=== PATIENT | male | born 1995 | race Caucasian/White ===

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

== ENCOUNTER 2017-04-08 13:04 | Emergency (ER) | payer OTHER ==
[2017-04-08 13:18] VITALS: BP 110/71
== END 2017-04-08 16:27 | disposition home or self-care (01) ==
LOC: ED 13:04
DX: S01.511A Laceration without foreign body of lip, initial encounter (principal); X58.XXXA Exposure to other specified factors, initial encounter; Y93.89 Activity, other specified; Y99.8 Other external cause status; Y92.89 Other specified places as the place of occurrence of the external cause
CPT/HCPCS: J2001

== ENCOUNTER 2017-08-07 16:05 | Emergency (ER) | payer OTHER ==
[~2017-08-07] VITALS: Ht 182.9 cm; Wt 83.5 kg
[2017-08-07 16:08] VITALS: BP 142/74; Ht 182.9 cm; Wt 83.5 kg
== END 2017-08-07 17:45 | disposition home or self-care (01) ==
LOC: ED 16:05
DX: J18.9 Pneumonia, unspecified organism (principal)
CPT/HCPCS: 87804; J0696; J7613

== ENCOUNTER 2017-09-15 17:26 | Emergency (ER) | payer OTHER ==
[~2017-09-15] VITALS: Ht 182.9 cm; Wt 85.3 kg
[2017-09-15 17:50] VITALS: Ht 182.9 cm; Wt 85.3 kg
[2017-09-15 20:34] VITALS: BP 117/68
== END 2017-09-15 20:34 | disposition home or self-care (01) ==
LOC: ED 17:26
DX: S30.817A Abrasion of anus, initial encounter (principal); X58.XXXA Exposure to other specified factors, initial encounter; Y93.89 Activity, other specified; Y92.89 Other specified places as the place of occurrence of the external cause; Y99.8 Other external cause status

== ENCOUNTER 2018-04-23 16:05 | Emergency (ER) | payer OTHER ==
[~2018-04-23] VITALS: Ht 182.9 cm; Wt 86.6 kg
[2018-04-23 16:18] VITALS: Ht 182.9 cm; Wt 86.6 kg
[2018-04-23 19:41] VITALS: BP 108/74
== END 2018-04-23 19:41 | disposition home or self-care (01) ==
LOC: ED 16:05
DX: R07.89 Other chest pain (principal); Z98.890 Other specified postprocedural states

== ENCOUNTER 2018-07-15 15:23 | Emergency (ER) | payer OTHER ==
[~2018-07-15] VITALS: Ht 182.9 cm; Wt 88.0 kg
[2018-07-15 15:30] VITALS: Ht 182.9 cm; Wt 88.0 kg
[2018-07-15 16:04] LABS: microscopic required? NO
[2018-07-15 16:25] LABS: BASOPHIL % 0.3 % (0-2); PLATELET COUNT 200 x10^3mcL (130-400); RED CELL DISTRIBUTION WIDTH 12.3 % (11.5-14.5)
[2018-07-15 16:26] LABS: UA SPECIFIC GRAVITY 1.025 (1.005-1.035); urine erythrocyte NEGATIVE (NEGATIVE)
[2018-07-15 16:33] LABS: CALCIUM 9.1 mg/dL (8.5-10.1); CHLORIDE SERUM 101 mmol/L (98-107); GFR1 > 60 mL/min; GLUCOSE SERUM 83 mg/dL (74-106); POTASSIUM SERUM 3.8 mmol/L (3.5-5.1); SODIUM SERUM 137 mmol/L (136-145)
[2018-07-15 16:49] LABS: ALBUMIN 4.3 g/dL (3.4-5.0); ALKALINE PHOSPHATASE 75 U/L (46-116); AST/SGOT 23 U/L (15-37); LIPASE 134 IU/L (73-393); TOTAL PROTEIN, SERUM 8.2 g/dL (6.4-8.2)
[2018-07-15 17:07] LABS: ALT/SGPT 29 U/L (16-63)
[2018-07-15 17:36] VITALS: BP 120/69
== END 2018-07-15 17:36 | disposition home or self-care (01) ==
LOC: ED 15:23
PROVIDERS: Emergency Medicine
DX: R91.1 Solitary pulmonary nodule (principal); Z98.890 Other specified postprocedural states
CPT/HCPCS: 36415

== ENCOUNTER 2018-12-07 08:45 | Emergency (ER) | payer SELFPAY ==
[~2018-12-07] VITALS: Ht 182.9 cm; Wt 90.3 kg
[2018-12-07 08:49] VITALS: Ht 182.9 cm; Wt 90.3 kg
[2018-12-07 10:45] VITALS: BP 113/70
== END 2018-12-07 10:45 | disposition home or self-care (01) ==
LOC: ED 08:45
DX: S06.9X9A Unspecified intracranial injury with loss of consciousness of unspecified duration, initial encounter (principal); S40.212A Abrasion of left shoulder, initial encounter; Z98.890 Other specified postprocedural states; V43.52XA Car driver injured in collision with other type car in traffic accident, initial encounter; Y93.I9 Activity, other involving external motion; Y92.488 Other paved roadways as the place of occurrence of the external cause; Y99.8 Other external cause status
CPT/HCPCS: J1885

== ENCOUNTER 2019-11-06 00:08 | Emergency (ER) | payer SELFPAY ==
[~2019-11-06] VITALS: Ht 182.9 cm; Wt 104.8 kg
[2019-11-06 00:16] VITALS: Ht 182.9 cm; Wt 104.8 kg
[2019-11-06 02:33] VITALS: BP 125/84
== END 2019-11-06 02:33 | disposition home or self-care (01) ==
LOC: ED 00:08
DX: R51 Headache (principal); S06.0X0A Concussion without loss of consciousness, initial encounter; Z98.890 Other specified postprocedural states; V89.0XXA Person injured in unspecified motor-vehicle accident, nontraffic, initial encounter; Y93.89 Activity, other specified; Y92.89 Other specified places as the place of occurrence of the external cause; Y99.8 Other external cause status